=== PATIENT | female | born 1985 | race African-American/Black ===

== ENCOUNTER 2017-12-19 08:15 | Emergency (ER) | payer OTHER ==
[~2017-12-19] VITALS: Ht 167.6 cm; Wt 69.0 kg
[~2017-12-19 08:15] MED LIST: AZIT1PAC
[2017-12-19] MEDS ORDERED: ONDANSETRON ODT 4 MG ONE (08:53)
[2017-12-19] MEDS ORDERED: ONDANSETRON ODT 4 MG PO ONE (09:00)
[2017-12-19] MEDS ORDERED: SODIUM CHLORIDE 0.9% 1,000ML IVBOLUS ONE (09:00)
[2017-12-19 09:59] VITALS: BP 123/84
== END 2017-12-19 10:06 | disposition home or self-care (01) ==
LOC: ED 10:00
DX: K52.9 Noninfective gastroenteritis and colitis, unspecified (principal); F12.10 Cannabis abuse, uncomplicated
CPT/HCPCS: 36415; 84703; 96360; 99284; J7030; Q0162